=== PATIENT | female | born 1940 | race African-American/Black ===

== ENCOUNTER 2016-08-11 16:38 | Emergency (ER) | payer MEDICARE, OTHER ==
--- NOTE | 2016-08-11 17:14 | ERRECORD ---
[facility] EMERGENCY RECORD HPI COUGH (16:51 SHAN) CHIEF COMPLAINT: Patient presents for evaluation of cough, non-productive. HISTORIAN: History provided by patient, cough for seven to 10 days; getting worse. LOCATION: No localizing symptoms. SEVERITY: Maximum severity of symptoms moderate, Currently symptoms are moderate. TIME COURSE: Gradual onset of symptoms. ROS (16:52 SHAN) CONSTITUTIONAL: Negative constitutional review of systems, Historian denies chills, denies fever. EYES: Negative eye review of systems. ENT: Negative ears, nose, throat review of systems. CARDIOVASCULAR: Negative cardiovascular review of systems, Historian denies chest pain, denies palpitations. RESPIRATORY: Historian reports cough. GI: Negative gastrointestinal review of systems, Historian denies abdominal pain, denies constipation, denies diarrhea. MUSCULOSKELETAL: Negative musculoskeletal review of systems. SKIN: Negative skin review of systems. NEUROLOGIC: Negative neurologic review of systems. ENDOCRINE: Negative endocrine review of systems. HEMO/LYMPHATIC: Normal hematologic/lymphatic system review. PSYCHIATRIC: Negative psychiatric review of systems. NOTES: All other ROS is negative except as listed in HPI. PAST MEDICAL HISTORY MEDICAL HISTORY: Past medical history includes history of hyperlipidemia, high cholesterol, Past medical history includes history of diabetes, Type II, Past medical history includes history of hypertension. (16:47 MADY) FEMALE SURGICAL HISTORY: Patient has no surgical history. (16:47 MADY) PSYCHIATRIC HISTORY: Notes: DENIES. (16:47 MADY) SOCIAL HISTORY: Patient denies alcohol use, Patient denies drug use, Patient has no smoking history. (16:47 MADY) NOTES: I have reviewed and agree with the PMH/PSxH/FamHx/SocHx obtained by the nurse. (16:52 SHAN) KNOWN ALLERGIES No Known Drug Allergies CURRENT MEDICATIONS (16:46 MADY) Lipitor: TABLET : Strength - 80 mg : ORAL Patient Dose: 80 mg Oral once a day (in the evening). metFORMIN: TABLET : Strength - 1,000 mg : ORAL &a-1R&a+25V*p+0X*t6230V*c202B*c15G*c2P*p-0X&a-25V&a+1R Name: Ifeoma Handy : 1940 F75 MedRec: [id number] AcctNum: [id number] Prepared: Danyelle Aug 11, 2016 17:07 by Interface Page 1 of 3 pMD [facility] EMERGENCY RECORD Patient Dose: 1000 mg Oral 2 times a day. NIFEdipine: TABLET, EXTENDED RELEASE : Strength - 60 mg : ORAL Patient Dose: 60 mg Oral once a day. VITAL SIGNS (16:43 MADY) VITAL SIGNS: BP: 137/70, Pulse: 77, Resp: 16, Temp: 98.7 (Oral), Pain: 5, O2 sat: 97 on Room Air, Time: 08/11/2016 16:43. PHYSICAL EXAM (16:52 SHAN) CONSTITUTIONAL: Vital signs reviewed, Patient appears non toxic, Patient alert and oriented to person, place and time, Pt is in no apparent distress. HEAD: Head exam included findings of head atraumatic, normocephalic. EYES: Eye exam included findings of eyelids normal to inspection, Pupils equally round and reactive to light, Extraocular muscles intact. ENT: ENT exam normal, Nose exam normal, no nasal deformity, no bleeding from nares, Pharynx exam normal, Mouth exam normal, mucous membranes moist. NECK: Neck exam included findings of normal range of motion, Trachea midline. RESPIRATORY CHEST: Respiratory and chest exam normal, Breath sounds clear, No wheezing, No rales, Chest exam included findings of chest movement symmetrical, Chest expansion equal. CARDIOVASCULAR: Cardiovascular assessment normal, Cardiovascular exam included findings of heart rate regular rate and rhythm, Heart sounds normal. ABDOMEN FEMALE: Abdominal exam included findings of abdomen nontender, Bowel sounds normal, no mass, no pulsatile masses, no peritoneal signs. BACK: Back exam included findings of normal inspection, range of motion normal, no costovertebral angle tenderness. UPPER EXTREMITY: Upper extremity exam included findings of inspection normal, Range of motion normal. LOWER EXTREMITY: Lower extremity exam included findings of inspection normal, Range of motion normal. NEURO: Neuro exam findings include patient oriented to person, place and time, Speech normal, no focal motor deficits, no focal sensory deficits. SKIN: Skin exam included findings of skin warm, dry, and normal in color. LYMPHATIC: Lymphatic exam normal. PSYCHIATRIC: Psychiatric exam included findings of patient oriented to person place and time, Normal affect. DOCTOR NOTES (16:53 SHAN) TEXT: 7 to 10 days of cough, getting worse. rx as acute bronchitis. &a-1R&a+25V*p+0X*r8946C*c202B*c15G*c2P*p-0X&a-25V&a+1R Name: Ifeoma Handy : 1940 F75 MedRec: [id number] AcctNum: [id number] Prepared: MonAug 11, 2016 17:07 by Interface Page 2 of 3 pMD [facility] EMERGENCY RECORD PROBLEM LIST No recorded problems DIAGNOSIS (16:54 RICHARD) FINAL: PRIMARY: Acute bronchitis. PRESCRIPTION Zithromax oral: CAPSULE : 250 mg : ORAL : Quantity: 1 Unit: tab(s) Route: ORAL Schedule: once a day Dispense: 8 Unit: tab(s) May substitute. Refills: No Refills . (16:55 RICHARD) NOTES: two now and one a day No Refills. (16:55 RICHARD) Phenergan-Codeine: SYRUP : : ORAL : Quantity: 5 Unit: mL Route: ORAL Schedule: every 4 hours prn Dispense: 100 Unit: mL May substitute. Refills: No Refills . (16:56 RICHARD) NOTES: is habit forming, can constipate, cause drousiness, and upset the stomach No Refills. (16:56 RICHARD) DISPOSITION PATIENT: Disposition Type: Discharge, Disposition: *Discharge Home. (16:54 RICHARD) Patient left the department. (17:05 MADY) Sifuentes: MADY=MAXIMILIANO Longo, Daxa RAMOS=MD Karolina, Corey &a-1R&a+25V*p+0X*g0827T*c202B*c15G*c2P*p-0X&a-25V&a+1R Name: Ifeoma Handy : 1940 F75 MedRec: [id number] AcctNum: [id number] Prepared: MonAug 11, 2016 17:07 by Interface Page 3 of 3 pMD MTDD
--- NOTE | 2016-08-11 17:15 | PICIS ---
[facility] EMERGENCY RECORD TRIAGE (16:45 MADY) TRIAGE NOTES: PATIENT C/O COUGH X1 WEEK. (16:45 MADY) PATIENT: NAME: Ifeoma Handy, AGE: 75, GENDER: female, : Mon1940, TIME OF GREET: MonAug 11, 2016 16:40, PREFERRED LANGUAGE: Togolese, ETHNICITY: Not or , ECODE BILLING MAP: [facility], SSN: [id number], Zip Code: [address], KG WEIGHT: 74.84, PHONE: , , , PERSON ID: [id number], PCP: Ari Draper. (16:45 MADY) COMPLAINT: COLD. (16:45 MADY) ADMISSION: URGENCY: 4 Non Urgent, ADMISSION SOURCE: Home, TRANSPORT: Walk-in, BED: ED -03. (16:45 MADY) ASSESSMENT: Additional Triage notes: PATIENT C/O COUGH X1 WEEK. (16:47 MADY) PAIN: Patient complains of pain described as, tender, Location RIGHT SIDE, Pain is intermittent. (16:47 MADY) IMMUNIZATIONS: Flu vaccine not up to date, Tetanus not up to date, Pneumococcal vaccine not up to date. (16:47 MADY) SIRS SCORING: Heart Rate 55-109 (0), Temp range 96.8-101.1 (0), respiratory rate 12-24 (0), Mental Status altered: no (0). (16:47 MADY) TRIAGE SCREENING: Patient denies suicidal ideation, Patient denies presence of domestic violence. (16:47 MADY) PROVIDERS: TRIAGE NURSE: Daxa Longo RN. (16:45 MADY) VITAL SIGNS: BP 137/70, Pulse 77, Resp 16, Temp 98.7, (Oral), Pain 5, O2 Sat 97, on Room Air, Time 08/11/2016 16:43. (16:43 MADY) PREVIOUS VISIT ALLERGIES: No Known Drug Allergies. (16:45 MADY) No Known Drug Allergies. (16:47 MADY) KNOWN ALLERGIES No Known Drug Allergies CURRENT MEDICATIONS (16:46 MADY) Lipitor: TABLET : Strength - 80 mg : ORAL Patient Dose: 80 mg Oral once a day (in the evening). metFORMIN: TABLET : Strength - 1,000 mg : ORAL Patient Dose: 1000 mg Oral 2 times a day. NIFEdipine: TABLET, EXTENDED RELEASE : Strength - 60 mg : ORAL Patient Dose: 60 mg Oral once a day. VITAL SIGNS (16:43 MADY) VITAL SIGNS: BP: 137/70, Pulse: 77, Resp: 16, Temp: 98.7 (Oral), Pain: 5, O2 sat: 97 on Room Air, Time: 08/11/2016 16:43. NURSING ASSESSMENT: RESPIRATORY /CHEST (16:50 MADY) &a-1R&a+25V*p+0X*m0021I*c202B*c15G*c2P*p-0X&a-25V&a+1R Name: Ifeoma Handy : 1940 F75 MedRec: [id number] AcctNum: [id number] Prepared: [facility] Aug 11, 2016 17:13 by Interface Page [address] [facility] EMERGENCY RECORD CONSTITUTIONAL: Patient arrives ambulatory, Gait steady, History obtained from patient, Patient appears comfortable, Patient cooperative, Patient alert, Oriented to person, place and time, Skin warm, Skin dry, Skin normal in color, Mucous membranes pink, Mucous membranes moist, Patient is well-groomed, Patient c/o cough x1 week. RESPIRATORY/CHEST: Breath sounds clear, Respiratory assessment findings include respiratory effort easy, Respirations regular, Conversing normally, Neck and chest exam findings include trachea midline, Chest expansion equal, Chest movement symmetrical, Associated with cough, non-productive, no associated fever. ENT: Ear assessment findings include ear normal to inspection, Nasal assessment findings include nose normal to inspection, Sinuses normal, Nasal mucosa normal, Mouth and throat assessment findings include mouth inspection normal, Uvula normal, Tonsils normal, Mucous membranes pink, and moist, Able to swallow, Speech normal. SAFETY: Side rails up, Cart/Stretcher in lowest position, Call light within reach, Hospital ID band on. NURSING PROCEDURE: DISCHARGE NOTE (17:04 MADY) DISCHARGE: Patient discharged to home, ambulating without assistance, driving self, unaccompanied, Discharge instructions given to patient, Simple or moderate discharge teaching performed, Prescriptions given and instructions on side effects given, Above person(s) verbalized understanding of discharge instructions and follow-up care. BELONGINGS: Belongings and valuables with patient upon arrival to the Emergency Department include:, Belongings and valuables with patient at time of discharge include:, Belongings remain with patient, Valuables remain with patient. SAFETY: Side rails up, Cart/Stretcher in lowest position, Call light within reach, Hospital ID band on. HPI COUGH (16:51 SHAN) CHIEF COMPLAINT: Patient presents for evaluation of cough, non-productive. HISTORIAN: History provided by patient, cough for seven to 10 days; getting worse. LOCATION: No localizing symptoms. SEVERITY: Maximum severity of symptoms moderate, Currently symptoms are moderate. TIME COURSE: Gradual onset of symptoms. ROS (16:52 SHAN) CONSTITUTIONAL: Negative constitutional review of systems, Historian denies chills, denies fever. EYES: Negative eye review of systems. ENT: Negative ears, nose, throat review of systems. CARDIOVASCULAR: Negative cardiovascular review of systems, Historian denies chest pain, denies palpitations. &a-1R&a+25V*p+0X*o9564Q*c202B*c15G*c2P*p-0X&a-25V&a+1R Name: Ifeoma Handy : 1940 F75 MedRec: [id number] AcctNum: [id number] Prepared: [facility] Aug 11, 2016 17:13 by Interface Page [address] [facility] EMERGENCY RECORD RESPIRATORY: Historian reports cough. GI: Negative gastrointestinal review of systems, Historian denies abdominal pain, denies constipation, denies diarrhea. MUSCULOSKELETAL: Negative musculoskeletal review of systems. SKIN: Negative skin review of systems. NEUROLOGIC: Negative neurologic review of systems. ENDOCRINE: Negative endocrine review of systems. HEMO/LYMPHATIC: Normal hematologic/lymphatic system review. PSYCHIATRIC: Negative psychiatric review of systems. NOTES: All other ROS is negative except as listed in HPI. PAST MEDICAL HISTORY MEDICAL HISTORY: Past medical history includes history of hyperlipidemia, high cholesterol, Past medical history includes history of diabetes, Type II, Past medical history includes history of hypertension. (16:47 MADY) FEMALE SURGICAL HISTORY: Patient has no surgical history. (16:47 MADY) PSYCHIATRIC HISTORY: Notes: DENIES. (16:47 MADY) SOCIAL HISTORY: Patient denies alcohol use, Patient denies drug use, Patient has no smoking history. (16:47 MADY) NOTES: I have reviewed and agree with the PMH/PSxH/FamHx/SocHx obtained by the nurse. (16:52 SHAN) PHYSICAL EXAM (16:52 SHAN) CONSTITUTIONAL: Vital signs reviewed, Patient appears non toxic, Patient alert and oriented to person, place and time, Pt is in no apparent distress. HEAD: Head exam included findings of head atraumatic, normocephalic. EYES: Eye exam included findings of eyelids normal to inspection, Pupils equally round and reactive to light, Extraocular muscles intact. ENT: ENT exam normal, Nose exam normal, no nasal deformity, no bleeding from nares, Pharynx exam normal, Mouth exam normal, mucous membranes moist. NECK: Neck exam included findings of normal range of motion, Trachea midline. RESPIRATORY CHEST: Respiratory and chest exam normal, Breath sounds clear, No wheezing, No rales, Chest exam included findings of chest movement symmetrical, Chest expansion equal. CARDIOVASCULAR: Cardiovascular assessment normal, Cardiovascular exam included findings of heart rate regular rate and rhythm, Heart sounds normal. ABDOMEN FEMALE: Abdominal exam included findings of abdomen nontender, Bowel sounds normal, no mass, no pulsatile masses, no peritoneal signs. BACK: Back exam included findings of normal inspection, range of motion normal, no costovertebral angle tenderness. &a-1R&a+25V*p+0X*q8851U*c202B*c15G*c2P*p-0X&a-25V&a+1R Name: Ifeoma Handy : 1940 F75 MedRec: [id number] AcctNum: [id number] Prepared: [facility] Aug 11, 2016 17:13 by Interface Page [address] [facility] EMERGENCY RECORD UPPER EXTREMITY: Upper extremity exam included findings of inspection normal, Range of motion normal. LOWER EXTREMITY: Lower extremity exam included findings of inspection normal, Range of motion normal. NEURO: Neuro exam findings include patient oriented to person, place and time, Speech normal, no focal motor deficits, no focal sensory deficits. SKIN: Skin exam included findings of skin warm, dry, and normal in color. LYMPHATIC: Lymphatic exam normal. PSYCHIATRIC: Psychiatric exam included findings of patient oriented to person place and time, Normal affect. EVENTS TRANSFER: Triage to Emergency Main ED -03. (MonAug 11, 2016 16:45 MADY) Removed from Emergency Main ED -03. (17:05 MADY) DOCTOR NOTES (16:53 SHAN) TEXT: 7 to 10 days of cough, getting worse. rx as acute bronchitis. PROBLEM LIST No recorded problems DIAGNOSIS (16:54 SHAN) FINAL: PRIMARY: Acute bronchitis. DISPOSITION PATIENT: Disposition Type: Discharge, Disposition: *Discharge Home. (16:54 SHAN) Patient left the department. (17:05 MADY) INSTRUCTION (16:56 SHAN) DISCHARGE: BRONCHITIS, ABX TX (ADULT). FOLLOWUP: [facility], /[facility], [address] [address], . SPECIAL: 1. antibiotic as directed 2. cough syrup sparingly. PRESCRIPTION Zithromax oral: CAPSULE : 250 mg : ORAL : Quantity: 1 Unit: tab(s) Route: ORAL Schedule: once a day Dispense: 8 Unit: tab(s) May substitute. Refills: No Refills . (16:55 SHAN) NOTES: two now and one a day No Refills. (16:55 SHAN) Phenergan-Codeine: SYRUP : : ORAL : Quantity: 5 Unit: mL Route: ORAL Schedule: every 4 hours prn Dispense: 100 Unit: mL &a-1R&a+25V*p+0X*d7379B*c202B*c15G*c2P*p-0X&a-25V&a+1R Name: Ifeoma Handy : 1940 F75 MedRec: [id number] AcctNum: [id number] Prepared: MonAug 11, 2016 17:13 by Interface Page [address] [facility] EMERGENCY RECORD May substitute. Refills: No Refills . (16:56 SHAN) NOTES: is habit forming, can constipate, cause drousiness, and upset the stomach No Refills. (16:56 SHAN) IMAGING *DISCHARGE INSTRUCTIONS RECEIPT: Image captured from scanner. (17:04 MADY) *SUPPLY CHARGE SHEET: Image captured from scanner. (17:05 MADY) ADMIN (16:56 RICHARD) DIGITAL SIGNATURE: MD Karolina, Corey. Sifuentes: MADY=MAXIMILIANO Longo, Daxa RAMOS=MD Turcios Stanley &a-1R&a+25V*p+0X*k9399D*c202B*c15G*c2P*p-0X&a-25V&a+1R Name: Ifeoma Handy : 1940 F75 MedRec: [id number] AcctNum: [id number] Prepared: Danyelle Aug 11, 2016 17:13 by Interface Page 5 of 5 pMD MTDD
== END 2016-08-11 17:05 | disposition home or self-care (01) ==
LOC: MADERS 16:38
DX: J20.9 Acute bronchitis, unspecified (principal); E78.5 Hyperlipidemia, unspecified; E78.00 Pure hypercholesterolemia, unspecified; E11.9 Type 2 diabetes mellitus without complications; I10 Essential (primary) hypertension; Z79.84 Long term (current) use of oral hypoglycemic drugs; Z79.899 Other long term (current) drug therapy
CPT/HCPCS: 99283

== ENCOUNTER 2016-10-20 19:43 | Emergency (ER) | payer MEDICARE ==
[2016-10-20] MEDS ORDERED: Benzonatate 100 MG CAP ONE (21:51)
[2016-10-20] MEDS ORDERED: AMOXicillin 250 MG CAP ONE (21:52)
== END 2016-10-20 22:27 | disposition home or self-care (01) ==
LOC: MADERS 19:43
DX: J20.9 Acute bronchitis, unspecified (principal); E78.5 Hyperlipidemia, unspecified; E78.00 Pure hypercholesterolemia, unspecified; E11.9 Type 2 diabetes mellitus without complications; I10 Essential (primary) hypertension; Z79.84 Long term (current) use of oral hypoglycemic drugs; Z79.899 Other long term (current) drug therapy
CPT/HCPCS: 99283

== ENCOUNTER 2017-02-22 20:13 | Emergency (ER) | payer MEDICARE ==
[2017-02-22] MEDS ORDERED: Dexamethasone 4 MG TAB ONE (20:56)
[2017-02-22] MEDS ORDERED: Benzonatate 100 MG CAP ONE (20:56)
[2017-02-22] MEDS ORDERED: Azithromycin 250 MG TAB ONE (20:56)
== END 2017-02-22 21:29 | disposition home or self-care (01) ==
LOC: MADERS 20:13
DX: J20.9 Acute bronchitis, unspecified (principal); E78.5 Hyperlipidemia, unspecified; E11.9 Type 2 diabetes mellitus without complications; I10 Essential (primary) hypertension; Z79.84 Long term (current) use of oral hypoglycemic drugs; Z79.899 Other long term (current) drug therapy
CPT/HCPCS: 99283; J8540

== ENCOUNTER 2017-03-21 12:02 | Emergency (ER) | payer MEDICARE ==
[~2017-03-21 12:02] MED LIST: Iopamidol 370 76% 125 ML VIAL FS ONE; Methimazole 5 MG TAB PO ONE
[2017-03-21 12:40] LABS: #Basophils 0.1 thou/uL (0.0-0.2); #Lymphocytes 1.2 thou/uL (1.20-3.40); #Neutrophils 13.5 thou/uL (1.40-6.50); %Basophils 0.5 % (0.0-1.0); %Lymphocytes 7.6 % (21.0-51.0); %Monocytes 6.2 % (0.0-10.0); %Neutrophils 85.6 % (42.0-75.0); Hemoglobin 11.6 g/dL (12.0-16.0); Mean Corpuscular HGB CONC 31.2 g/dL (32.0-36.0); Mean Corpuscular Hemoglobin 28.9 pg (27.0-31.0); Mean Corpuscular Volume 92.6 fl (81.0-99.0); Mean Platelet Volume 8.4 fL (7.4-10.4); Platelet Count 308 thou/uL (130-400); RBC Distribution Width 13.4 % (11.5-14.5); Red Blood Cell (RBC) Count 4.03 mill/uL (4.20-5.40); White Blood Cell (WBC) Count 15.7 thou/uL (4.8-10.8)
[2017-03-21 13:00] LABS: ALT (SGPT) 29 U/L (8-55); AST (SGOT) 127 U/L (5-34); Albumin 3.9 g/dL (3.4-4.8); Alkaline Phosphatase 80 U/L (40-150); Anion Gap 20 mmol/L (10-20); BUN (Urea Nitrogen) 16 mg/dL (9.8-20.1); Bilirubin, Total 0.4 mg/dL (0.2-1.2); Calc. Creatinine Clearance 0 mL/min (70-130); Carbon Dioxide 21 mmol/L (23-31); Chloride 104 mmol/L (98-107); Estimated GFR-MDRD Greater than 90; Globulin 4.8 g/dL (2.4-3.5); Glucose 211 mg/dL (83-110); Magnesium 1.8 mg/dL (1.6-2.6); Potassium 4.5 mmol/L (3.5-5.1); Protein, Total 8.7 g/dL (6.0-8.3); Sodium 140 mmol/L (136-145)
[2017-03-21] MEDS ORDERED: Aspirin 325 MG TAB ONE (13:11)
[2017-03-21 13:20] LABS: CKMB 104.6 ng/mL (0-6.6); Troponin I 9.026 ng/mL (< 0.028)
[2017-03-21] MEDS ORDERED: Enoxaparin Sodium 80 MG/0.8 ML SYRINGE ONE (13:30)
--- NOTE | 2017-03-21 13:48 | CT ---
CTA CHEST WITH 3D VOLUME RENDERING: History: Chest pain, chest fatigue. Comparison: None. FINDINGS: No evidence of a significant filling defect involving the pulmonary system. The thoracic aorta is no n-aneurysmal and there is scattered vascular calcification. There is coronary artery disease. Mild b ilateral pleural effusions are present. There is diffuse interstitial septal thickening and scattere d ground glass alveolar opacities throughout each lung. No pneumothorax. Diffuse osseous degenerativ e change is present. IMPRESSION: 1. No large, central pulmonary embolus. 2. Diffuse interstitial septal thickening and ground glass alveolar opacities of each lung. This may be on the basis of edema in the correct clinical context. 3. There are bilateral pleural effusions, small in volume. POS: [facility]
[2017-03-21] MEDS ORDERED: Furosemide 20 MG/2 ML VIAL ONE (14:04)
[2017-03-21 14:32] LABS: Free T4 (Free Thyroxine) 1.18 ng/dL (0.70-1.48)
== END 2017-03-21 14:38 | disposition short-term general hospital (02) ==
LOC: MADERS 12:02
DX: I21.4 Non-ST elevation (NSTEMI) myocardial infarction (principal); E05.90 Thyrotoxicosis, unspecified without thyrotoxic crisis or storm; E78.5 Hyperlipidemia, unspecified; E11.9 Type 2 diabetes mellitus without complications; I10 Essential (primary) hypertension; Z79.82 Long term (current) use of aspirin; Z79.84 Long term (current) use of oral hypoglycemic drugs; Z79.899 Other long term (current) drug therapy
CPT/HCPCS: 36415; 71275; 80053; 82553; 83735; 83880; 84439; 84443; 84481; 84484; 85025; 85379; 85730; 93005; 96372; 96374; J1650; J1940

== ENCOUNTER 2017-05-18 09:40 | Emergency (ER) | payer MEDICARE, OTHER ==
--- NOTE | 2017-05-18 11:02 | RAD ---
THREE VIEWS RIGHT HAND: Comparison: 01-20-15 History: Pain and swelling of the right hand. FINDINGS: Three views of the right hand shows moderate diffuse soft tissue swelling. No fracture or dislocatio n are seen. No degenerative changes are present. IMPRESSION: Soft tissue swelling without underlying osseous abnormality. POS: [facility]
--- NOTE | 2017-05-18 11:04 | RAD ---
THREE VIEWS OF THE RIGHT WRIST: COMPARISON: None. HISTORY: Pain and swelling in the wrist. FINDINGS: Three views right wrist show no evidence of acute fracture or dislocation. No degenerative changes are seen. Moderate diffuse soft tissue swelling is present. IMPRESSION: Soft tissue swelling without underlying osseous abnormality. POS: [facility]UL[facility]
[2017-05-18] MEDS ORDERED: HYDROcodone/Acetaminophen 10/325 mg Tablet ONE (11:32)
[2017-05-18] MEDS ORDERED: Naproxen 500 MG TAB ONE (11:32)
[2017-05-18] MEDS ORDERED: predniSONE 20 MG TAB ONE (11:32)
== END 2017-05-18 11:40 | disposition home or self-care (01) ==
LOC: MADERS 09:40
DX: M13.131 Monoarthritis, not elsewhere classified, right wrist (principal); E78.5 Hyperlipidemia, unspecified; E11.9 Type 2 diabetes mellitus without complications; I10 Essential (primary) hypertension; Z79.84 Long term (current) use of oral hypoglycemic drugs; Z79.899 Other long term (current) drug therapy
CPT/HCPCS: J7506

== ENCOUNTER 2017-08-25 00:05 | Emergency (ER) | payer MEDICARE | END 2017-08-25 00:38 | disposition home or self-care (01) | LOC: MADERS 00:05 | DX: I10 Essential (primary) hypertension (principal); E78.5 Hyperlipidemia, unspecified; E11.9 Type 2 diabetes mellitus without complications; Z79.84 Long term (current) use of oral hypoglycemic drugs; Z79.899 Other long term (current) drug therapy | CPT/HCPCS: 99283 ==

== ENCOUNTER 2017-10-01 03:25 | Emergency (ER) | payer MEDICARE ==
[2017-10-01] MEDS ORDERED: cefTRIAXone\\ROCEPHIN 1 GM VIAL ONE (04:19)
[2017-10-01] MEDS ORDERED: methylPREDNISolone Sod Succ/PF 125 MG/2 ML VIAL ONE (04:20)
[2017-10-01] MEDS ORDERED: Azithromycin 250 MG TAB ONE (04:20)
[2017-10-01] MEDS ORDERED: Dexamethasone 10 MG/ML VIAL ONE (04:21)
[2017-10-01] MEDS ORDERED: Benzonatate 100 MG CAP ONE (04:21)
[2017-10-01 04:33] LABS: PTT 26.6 SEC (22.9-36.1); Prothrombin Time 13.6 SEC (12.0-14.7)
[2017-10-01 04:46] LABS: ALT (SGPT) 14 U/L (8-55); AST (SGOT) 24 U/L (5-34); Albumin 4.2 g/dL (3.4-4.8); Alkaline Phosphatase 80 U/L (40-150); Anion Gap 18 mmol/L (10-20); BUN (Urea Nitrogen) 17 mg/dL (9.8-20.1); Bilirubin, Total 0.5 mg/dL (0.2-1.2); CK (CPK) 203 U/L (29-168); Calc. Creatinine Clearance 0 mL/min (70-130); Calcium 9.7 mg/dL (7.8-10.44); Carbon Dioxide 22 mmol/L (23-31); Chloride 103 mmol/L (98-107); Estimated GFR-MDRD 83; Globulin 3.8 g/dL (2.4-3.5); Glucose 312 mg/dL (83-110); Sodium 139 mmol/L (136-145)
[2017-10-01 04:50] LABS: Hemoglobin 13.7 g/dL (12.0-16.0); Mean Corpuscular Hemoglobin 29.7 pg (27.0-31.0); Mean Corpuscular Volume 92.7 fl (81.0-99.0); Mean Platelet Volume 11.6 fL (7.4-10.4); Platelet Count 242 thou/uL (130-400); RBC Distribution Width 14.7 % (11.5-14.5)
[2017-10-01 04:52] LABS: Band 8 % (5-11); Lymphocytes 20 % (21-51); MDiff Complete? YES; Monocytes 6 % (0-10); Neutrophil 64 % (42-75)
[2017-10-01 04:53] LABS: Metamyelocyte 2 % (0-0)
[2017-10-01 04:55] LABS: Troponin I 0.686 ng/mL (< 0.028)
[2017-10-01] MEDS ORDERED: Aspirin 325 MG TAB ONE (05:27)
[2017-10-01] MEDS ORDERED: Furosemide 40 MG/4 ML VIAL ONE (05:27)
[2017-10-01 06:00] LABS: Bilirubin Small (Negative); Blood, Urine Moderate (Negative); Clarity Clear (Clear); Glucose, Urine (Dipstick) 250 mg/dL (Negative); Leukocyte Negative (Negative); Nitrite Negative (Negative); Protein, Urine (Dipstick) > or equal to 300 mg/dL (Neg-Trace); Urobilinogen 0.2 mg/dL (0.2-1.0)
[2017-10-01 06:10] LABS: Bacteria/HPF Rare-Few HPF (None Seen); Hyaline Casts/LPF 7-10 HYALINE CAST LPF (0-3 Hyaline); Renal Epithelial 0-3 HPF (0-3); Specific Gravity, Urine 1.033 (1.002-1.036); Squamous Epithelial 0-3 HPF (0-3); Transitional Epithelial 0-3 HPF (0-3)
[2017-10-01] MEDS ORDERED: Sodium Chloride 0.9% 100 ML BAG ONE (09:23)
--- NOTE | 2017-10-01 09:43 | RAD ---
PORTABLE CHEST; Date: 10/01/17 PROVIDED CLINICAL HISTORY: Dyspnea. FINDINGS: Comparison with 03/25/17. Cardiac silhouette appears enlarged. Prominence of the pulmonary vasculature and pulmonary interstiti um. Patchy bibasilar air space opacity. Blunting of each costophrenic angle likely reflecting effusio n. No evidence for pneumothorax. IMPRESSION: Findings suggesting congestive failure with associated alveolar edema and bilateral pleural effusions . Infectious etiologies can have a similar appearance. Follow-up is recommended. POS: [facility]
== END 2017-10-01 05:47 | disposition short-term general hospital (02) ==
LOC: MADERS 03:25
DX: I21.4 Non-ST elevation (NSTEMI) myocardial infarction (principal); I11.0 Hypertensive heart disease with heart failure; I50.9 Heart failure, unspecified; E11.65 Type 2 diabetes mellitus with hyperglycemia; E78.5 Hyperlipidemia, unspecified; Z79.84 Long term (current) use of oral hypoglycemic drugs; Z79.899 Other long term (current) drug therapy
CPT/HCPCS: 36416; 51702; 71045; 80053; 81001; 82553; 83605; 83880; 84484; 85025; 85610; 85730; 87040; 87081; 87086; 87430; 87804; 93005; 94760; 96365; 96375; 36415-59; J0696; J1100; J1940; J2930; J7050; J7620

== ENCOUNTER 2017-12-21 07:09 | Outpatient (CLI) | payer MEDICARE ==
[2017-12-21 08:25] LABS: ALT (SGPT) 11 U/L (8-55); AST (SGOT) 10 U/L (5-34); Albumin 3.9 g/dL (3.4-4.8); Alkaline Phosphatase 67 U/L (40-150); Anion Gap 15 mmol/L (10-20); BUN (Urea Nitrogen) 14 mg/dL (9.8-20.1); Bilirubin, Total 0.6 mg/dL (0.2-1.2); Calc. Creatinine Clearance 0 mL/min (70-130); Calcium 9.2 mg/dL (7.8-10.44); Carbon Dioxide 25 mmol/L (23-31); Cardiac Risk 2.4 (Less than 4.5); Chloride 105 mmol/L (98-107); Cholesterol 128 mg/dl (< 200 Desired); Estimated GFR-MDRD 89; Globulin 3.5 g/dL (2.4-3.5); Glucose 118 mg/dL (83-110); HDL Cholesterol 54 mg/dL (>60 Neg Risk); LDL Cholesterol, Calculated 60 mg/dL; Potassium 3.6 mmol/L (3.5-5.1); Protein, Total 7.4 g/dL (6.0-8.3); Sodium 141 mmol/L (136-145); Triglycerides 70 mg/dL (Less than 150)
== END 2017-12-21 07:10 | disposition home or self-care (01) ==
LOC: MADLAB 07:09
PROVIDERS: ATTEND Internal Medicine Cardiovascular Disease
DX: E78.00 Pure hypercholesterolemia, unspecified (principal)
CPT/HCPCS: 36415; 80053; 80061

== ENCOUNTER 2019-08-18 16:07 | Emergency (ER) | payer MEDICARE ==
--- NOTE | 2019-08-18 16:48 | RAD ---
XR Chest Pa Lat STANDARD HISTORY: Cough, fever COMPARISON: 10/03/2017 FINDINGS: The heart size is normal. 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 The aorta is tortuous. The lungs are well expanded without focal areas of consolidation, pneumothorax or pleural effusions. There are degenerative changes in the spine. IMPRESSION: No radiographic evidence of acute cardiopulmonary process.
[2019-08-18] MEDS ORDERED: Ibuprofen 200 MG TAB ONE (17:23)
[2019-08-18] MEDS ORDERED: Oseltamivir 75 MG CAP ONE (17:23)
[2019-08-18] MEDS ORDERED: Acetaminophen 500 MG TAB ONE (17:23)
== END 2019-08-18 17:31 | disposition home or self-care (01) ==
LOC: MADERS 16:07
DX: J10.1 Influenza due to other identified influenza virus with other respiratory manifestations (principal); M25.511 Pain in right shoulder; I25.2 Old myocardial infarction; E78.5 Hyperlipidemia, unspecified; E78.00 Pure hypercholesterolemia, unspecified; E11.9 Type 2 diabetes mellitus without complications; I10 Essential (primary) hypertension; Z79.84 Long term (current) use of oral hypoglycemic drugs; Z79.899 Other long term (current) drug therapy
CPT/HCPCS: 71046; 87804

== ENCOUNTER 2023-03-01 11:43 | Emergency (ER) | payer OTHER | END 2023-03-01 12:12 | disposition home or self-care (01) | LOC: MADERS 11:43 | DX: J06.9 Acute upper respiratory infection, unspecified (principal); I10 Essential (primary) hypertension; E11.9 Type 2 diabetes mellitus without complications; I25.2 Old myocardial infarction; E78.00 Pure hypercholesterolemia, unspecified; Z79.84 Long term (current) use of oral hypoglycemic drugs; Z79.899 Other long term (current) drug therapy; Z95.0 Presence of cardiac pacemaker | CPT/HCPCS: 99283 ==

== ENCOUNTER 2025-07-01 07:30 | Outpatient (CLI) | payer MEDICARE, OTHER ==
[2025-07-01 08:33] LABS: Hematocrit 35.1 % (36.0-47.0); Hemoglobin 11.0 g/dL (12.0-16.0); Mean Corpuscular Hemoglobin 30.3 pg (27.0-31.0); Mean Corpuscular Volume 96.8 fl (78.0-98.0); Platelet Count 188 10x3/uL (130-400); Red Blood Cell (RBC) Count 3.62 mill/uL (4.20-5.40); White Blood Cell (WBC) Count 7.4 10x3/uL (4.8-10.8)
[2025-07-01 08:46] LABS: ALT (SGPT) 12 U/L (Less than 34); AST (SGOT) 17 U/L (11-34); Albumin 3.8 g/dL (3.1-4.5); Alkaline Phosphatase 63 U/L (40-110); Anion Gap 15 mmol/L (10-20); BUN (Urea Nitrogen) 30 mg/dL (9.8-20.1); Bilirubin, Total 0.4 mg/dL (0.3-1.2); Calc. Creatinine Clearance 0 mL/min (70-130); Calcium 9.0 mg/dL (7.8-10.44); Carbon Dioxide 23 mmol/L (23-31); Chloride 107 mmol/L (98-107); Globulin 3.5 g/dL (2.4-3.5); Glucose 168 mg/dL (83-110); Potassium 5.0 mmol/L (3.5-5.1); Sodium 140 mmol/L (136-145)
== END 2025-07-01 07:31 | disposition home or self-care (01) ==
LOC: MADLAB 07:30
PROVIDERS: ATTEND Family Medicine
DX: I10 Essential (primary) hypertension (principal); E11.9 Type 2 diabetes mellitus without complications
CPT/HCPCS: 36415; 80053; 83036; 84443; 85027